=== PATIENT | female | born 1950 | race Caucasian/White ===

== ENCOUNTER 2018-03-28 02:40 | Emergency (ER) | payer OTHER, BC ==
[2018-03-28] MEDS ORDERED: HYDROCODONE/APAP 7.5/325 MG TAB ONE (02:53)
--- NOTE | 2018-03-28 05:12 | ER ---
Nurse's Notes [facility] Name: Cassie Christensen Age: 67 yrs Sex: Female : 1950 Arrival Date: 03/28/2018 Time: 02:42 Bed 4 Private MD: Diagnosis: Fracture left humeral head. Fracture left patella Presentation: 03/28 02:43 Presenting complaint: Patient states: she was sitting on the toilet and believes she aa1 nodded off and fell off of the toilet hitting the shower with the L side of her body. C/O L shoulder pain and L knee pain. CMS intact. Transition of care: patient was not received from another setting of care. Onset of symptoms was March 28, 2018. Initial Sepsis Screen: Does the patient meet any 2 criteria? No. Patient's initial sepsis screen is negative. Does the patient have a suspected source of infection? No. Patient's initial sepsis screen is negative. Care prior to arrival: None. 02:43 Method Of Arrival: EMS: [facility] aa1 02:43 Acuity: JELLY 3 aa1 Triage Assessment: 02:45 General: Appears in no apparent distress. uncomfortable, Behavior is calm, cooperative, aa1 appropriate for age. Historical: - Allergies: 02:45 No Known Allergies; aa1 - Home Meds: 02:45 None [Active]; aa1 - PMHx: 02:45 None; aa1 - PSHx: 02:45 None; aa1 - Immunization history:: Flu vaccine is not up to date. - Social history:: Smoking status: Patient/guardian denies using tobacco. Screenin:49 Abuse screen: Denies threats or abuse. Nutritional screening: No deficits noted. bb Tuberculosis screening: No symptoms or risk factors identified. Fall Risk Fall in past 12 months (25 points). No secondary diagnosis (0 pts). No IV (0 pts). Ambulatory Aid- None/Bed Rest/Nurse Assist (0 pts). Mental Status- Oriented to own ability (0 pts). Total Mishra Fall Scale indicates Low Risk Score (25-44 pts). Fall prevention measures have been instituted. Side Rails Up X 2 Family Present and informed to notify staff if they need to leave bedside As available Patient and Family Educated on Fall Prevention Program and strategies. Assessment: 02:49 General: Appears in no apparent distress. uncomfortable, Behavior is cooperative, bb anxious. Pain: Complains of pain in left shoulder and left knee Pain currently is 01 out of 10 on a pain scale. Neuro: Level of Consciousness is awake, alert, obeys commands, Oriented to person, place, time, situation. Cardiovascular: Heart tones S1 S2 present. Respiratory: Airway is patent Respiratory effort is even, unlabored, Respiratory pattern is regular, Breath sounds are clear bilaterally. GI: Abdomen is non-distended, Bowel sounds present X 4 quads. Abd is soft and non tender X 4 quads. Derm: Skin is pink, warm \T\ dry. Musculoskeletal: Circulation, motion, and sensation intact. Reports pain in left shoulder and left knee bruising to left knee. 03:38 Reassessment: No changes from previously documented assessment. Patient and/or family bb updated on plan of care and expected duration. Pain level reassessed. Patient is alert, oriented x 3, equal unlabored respirations, skin warm/dry/pink. family at bedside Patient states feeling better. 03:39 Reassessment: pt to CT scan via stretcher with generator technician. bb 04:38 Reassessment: Patient and/or family updated on plan of care and expected duration. Pain bb level reassessed. Patient is alert, oriented x 3, equal unlabored respirations, skin warm/dry/pink. pt resting quietly, family at bedside, awaiting results of CT scan. Vital Signs: 02:45 BP 155 / 81; Pulse 99; Resp 20; Temp 98.3; Pulse Ox 100% on R/A; Weight 69.4 kg; Height aa1 5 ft. 8 in. (172.72 cm); Pain 5/10; 03:47 BP 143 / 95; Pulse 83; Resp 18 S; Pulse Ox 98% on R/A; bb 04:40 BP 136 / 73; Pulse 83; Resp 18 S; Pulse Ox 97% on R/A; bb 05:30 BP 130 / 70; Pulse 81; Resp 16; Temp 98.3; Pulse Ox 98% on R/A; Pain 3/10; ak1 02:45 Body Mass Index 23.26 (69.40 kg, 172.72 cm) aa1 ED Course: 02:42 Patient arrived in ED. aa1 02:44 Triage completed. aa1 02:45 Gaston Bailey MD is Attending Physician. pkl 02:45 Arm band placed on left wrist. Patient placed in an exam room, on a stretcher. aa1 02:48 Salma Mendosa, RN is Primary Nurse. bb 02:49 Patient has correct armband on for positive identification. Bed in low position. Call bb light in reach. Side rails up X2. Adult w/ patient. mainspring torque tester on. Pulse ox on. Sitter at bedside. Warm blanket given. 03:11 X-ray completed. Portable x-ray completed in exam room. Patient tolerated procedure kw well. 03:12 Shoulder Left (2 View) XRAY In Process Unspecified. EDMS 03:12 Knee Left 3 View XRAY In Process Unspecified. EDMS 03:28 Assisted with bedpan. ak1 03:55 CT completed. Patient tolerated procedure well. Patient moved to CT via stretcher. Patient moved back from CT. 03:56 Shoulder Left Wo Con In Process Unspecified. EDMS 04:31 Assisted with bedpan. ak1 05:11 Amador Scott MD is Referral Physician. pkl 05:29 No provider procedures requiring assistance completed. Patient did not have IV access ak1 during this emergency room visit. Administered Medications: 02:55 Drug: [place] (7.5 mg-325 mg) 1 tabs Route: PO; bb 05:29 Follow up: Response: No adverse reaction ak1 Outcome: 05:12 Discharge ordered by . pkl 05:30 Discharged to home via wheelchair, with family. ak1 05:30 Condition: stable 05:30 Discharge instructions given to patient, family, Instructed on discharge instructions, follow up and referral plans. no drinking with medication, no driving heavy equipment, medication usage, splint and shoulder immobilizer use/care Demonstrated understanding of instructions, follow-up care, medications, splint care, Prescriptions given X 1. 05:31 Patient left the ED. ak1 Signatures: Dispatcher [employer] Tenisha Yang, RN RN aa1 Gaston Bailey MD MD pkl Kd Viera Salma Mendosa, RN RN Vanessa Tucker Amber, RN RN ak1
--- NOTE | 2018-03-28 05:12 | EDPHYS ---
Physician Documentation [facility] Name: Cassie Christensen Age: 67 yrs Sex: Female : 1950 Arrival Date: 03/28/2018 Time: 02:42 Bed 4 Private MD: ED Physician Gaston Bailey HPI: 03/28 03:32 This 67 yrs old Female presents to ER via EMS with complaints of Fall Injury. pkl 03:32 Details of fall: The patient fell from seated position, sitting on the toilet. Onset: pkl The symptoms/episode began/occurred just prior to arrival, 1 hour(s) ago. Associated injuries: The patient sustained left shoulder, left knee. Historical: - Allergies: 02:45 No Known Allergies; aa1 - Home Meds: 02:45 None [Active]; aa1 - PMHx: 02:45 None; aa1 - PSHx: 02:45 None; aa1 - Immunization history:: Flu vaccine is not up to date. - Social history:: Smoking status: Patient/guardian denies using tobacco. ROS: 03:32 Eyes: Negative for injury, pain, redness, and discharge, ENT: Negative for injury, pkl pain, and discharge, Neck: Negative for injury, pain, and swelling, Cardiovascular: Negative for chest pain, palpitations, and edema, Respiratory: Negative for shortness of breath, cough, wheezing, and pleuritic chest pain, Abdomen/GI: Negative for abdominal pain, nausea, vomiting, diarrhea, and constipation, Back: Negative for injury and pain, : Negative for injury, bleeding, discharge, and swelling, Skin: Negative for injury, rash, and discoloration, Neuro: Negative for headache, weakness, numbness, tingling, and seizure. 03:32 MS/extremity: Positive for injury or acute deformity, of the left shoulder and left knee. Exam: 03:32 Head/Face: Normocephalic, atraumatic. Eyes: Pupils equal round and reactive to light, pkl extra-ocular motions intact. Lids and lashes normal. Conjunctiva and sclera are non-icteric and not injected. Cornea within normal limits. Periorbital areas with no swelling, redness, or edema. ENT: Nares patent. No nasal discharge, no septal abnormalities noted. Tympanic membranes are normal and external auditory canals are clear. Oropharynx with no redness, swelling, or masses, exudates, or evidence of obstruction, uvula midline. Mucous membranes moist. Neck: Trachea midline, no thyromegaly or masses palpated, and no cervical lymphadenopathy. Supple, full range of motion without nuchal rigidity, or vertebral point tenderness. No Meningismus. Chest/axilla: Normal chest wall appearance and motion. Nontender with no deformity. No lesions are appreciated. Cardiovascular: Regular rate and rhythm with a normal S1 and S2. No gallops, murmurs, or rubs. Normal PMI, no JVD. No pulse deficits. Respiratory: Lungs have equal breath sounds bilaterally, clear to auscultation and percussion. No rales, rhonchi or wheezes noted. No increased work of breathing, no retractions or nasal flaring. Abdomen/GI: Soft, non-tender, with normal bowel sounds. No distension or tympany. No guarding or rebound. No evidence of tenderness throughout. Back: No spinal tenderness. No costovertebral tenderness. Full range of motion. Skin: Warm, dry with normal turgor. Normal color with no rashes, no lesions, and no evidence of cellulitis. Neuro: Awake and alert, GCS 15, oriented to person, place, time, and situation. Cranial nerves II-XII grossly intact. Motor strength 5/5 in all extremities. Sensory grossly intact. Cerebellar exam normal. Normal gait. 03:32 Musculoskeletal/extremity: Extremities: grossly normal except: noted in the left shoulder: contusion, pain, noted in the left knee: pain, swelling, tenderness. Vital Signs: 02:45 BP 155 / 81; Pulse 99; Resp 20; Temp 98.3; Pulse Ox 100% on R/A; Weight 69.4 kg; Height aa1 5 ft. 8 in. (172.72 cm); Pain 5/10; 03:47 BP 143 / 95; Pulse 83; Resp 18 S; Pulse Ox 98% on R/A; bb 04:40 BP 136 / 73; Pulse 83; Resp 18 S; Pulse Ox 97% on R/A; bb 05:30 BP 130 / 70; Pulse 81; Resp 16; Temp 98.3; Pulse Ox 98% on R/A; Pain 3/10; ak1 02:45 Body Mass Index 23.26 (69.40 kg, 172.72 cm) aa1 MDM: 02:45 Patient medically screened. pkl 05:10 Data reviewed: vital signs, nurses notes, radiologic studies, CT scan, plain films. pkl 03/28 02:51 Order name: Shoulder Left (2 View) XRAY pkl 03/28 02:51 Order name: Knee Left 3 View XRAY pkl 03/28 03:27 Order name: Shoulder Left Wo Con EDMS 03/28 05:09 Order name: Shoulder Immobilizer; Complete Time: 05:29 pkl 03/28 05:09 Order name: Knee Immobilizer; Complete Time: 05:29 pkl Administered Medications: 02:55 Drug: [place] (7.5 mg-325 mg) 1 tabs Route: PO; bb 05:29 Follow up: Response: No adverse reaction ak1 Disposition: 03/28/18 05:12 Discharged to Home. Impression: Fracture left humeral head. Fracture left patella. - Condition is Stable. - Prescriptions for Ultram 50 mg Oral Tablet - take 1 tablet by ORAL route every 8 hours As needed; 30 tablet. - Medication Reconciliation Form, Thank You Letter, Antibiotic Education, Prescription Opioid Use form. - Follow up: Amador Scott MD; When: 2 - 3 days; Reason: Re-evaluation by your physician. - Problem is new. - Symptoms have improved. Signatures: Dispatcher [employer] Tenisha Yang, RN RN aa1 Gaston Bailey MD MD pkl Salma Mendosa RN RN bb Kiki Perez RN RN ak1
--- NOTE | 2018-03-28 08:45 | RAD REPORT ---
EXAM DESCRIPTION: RAD - Knee Left 3 View - 03/28/2018 3:14 am CLINICAL HISTORY: Fall, knee pain COMPARISON: None. FINDINGS: Transverse fracture of the patella is present approximately 6- 7 mm of distraction along t he fracture plane.Small joint effusion is present. Fracture extends into the articular surface of the patella. Soft tissue swelling is also present superficial to the joint space. Femur, tibia and fibula show no acute findings. No foreign body. IMPRESSION: Transverse fracture of the patella with 6- 7 mm of distraction.
--- NOTE | 2018-03-28 08:46 | RAD REPORT ---
EXAM DESCRIPTION: RAD - Shoulder Left 2 View - 03/28/2018 3:16 am CLINICAL HISTORY: Fall, shoulder pain COMPARISON: None. TECHNIQUE: Internal and external rotation views of the left shoulder were obtained. FINDINGS: No gross fracture deformity is seen. There are subtle changes along the medial margin surg ical neck that could indicate fracture. No pathologic bone process. No AC joint degenerative spurring or hypertrophy. Acromial humeral joint space is normal. No acute finding in the ribs or parenchyma o f the upper chest. IMPRESSION: Questionable fracture of the proximal humerus.
--- NOTE | 2018-03-28 08:52 | RAD REPORT ---
EXAM DESCRIPTION: CT - Shoulder Left Wo Con - 03/28/2018 5:18 am CLINICAL HISTORY: Fall, shoulder pain A preliminary written report was provided at the time of the study, and the report was reviewed prio r to final dictation. COMPARISON: Left shoulder same date TECHNIQUE: Axial 3 millimeter thick images of the left shoulder joint obtained with sagittal and cor onal reformatted images generated and reviewed. FINDINGS: No fracture of the acromion or elsewhere within the scapula. Minimal AC joint degenerative changes present without inferiorly directed spurring. Minimal degenerative change at the sternoclavi cular joint. No clavicle fracture seen. No dislocation of the humeral head and no pathologic bone process seen. Fracture of the proximal obed jeremiah is present. Fracture is seen as a primarily transverse fracture plane along the surgical neck. Fr acture involves the lesser tuberosity as well as the biceps groove. There is minimal impaction along the medial margin of the fracture. Several small fracture fragments are seen along the anterior crow n of the fracture. IMPRESSION: Minimally impacted fracture of the proximal humerus seen as a primarily surgical neck tr ansverse fracture. Greater tuberosity and biceps groove are involved. No dislocation of the humeral head. No pathologic component.
== END 2018-03-28 05:31 | disposition home or self-care (01) ==
LOC: ER 02:40
PROC: 2W3BXYZ Immobilization of Left Upper Arm using Other Device (ICD-10-PCS; principal; 2018-03-28)
PROC: 2W3RXYZ Immobilization of Left Lower Leg using Other Device (ICD-10-PCS; 2018-03-28)
DX: S42.292A Other displaced fracture of upper end of left humerus, initial encounter for closed fracture (principal); S82.002A Unspecified fracture of left patella, initial encounter for closed fracture; W18.11XA Fall from or off toilet without subsequent striking against object, initial encounter; Y93.9 Activity, unspecified; Y92.9 Unspecified place or not applicable
CPT/HCPCS: 73200; 99285

== ENCOUNTER 2019-06-11 08:02 | Observation (INO) | payer OTHER, BC ==
[2019-06-08 12:30] LABS: Absolute Lymphocytes (CBC) 0.9 K/uL (0.7-4.9); Basophils % 0.7 % (0-1.3); Eosinophils % 1.9 % (0-4.4); Hematocrit 39.2 % (36.0-45.0); Lymphocytes % 22.7 % (15.3-44.8); Monocytes % 10.2 % (3.3-12.3); RBC Red Blood Cell Count 4.39 M/uL (3.86-4.86)
--- NOTE | 2019-06-08 12:53 | RAD REPORT ---
EXAM DESCRIPTION: RAD - Chest Pa And Lat (2 Views) - 06/08/2019 12:47 pm CLINICAL HISTORY: pre op Chest pain. COMPARISON: No comparisons FINDINGS: The lungs are clear. The heart is mildly enlarged in size. No displaced fractures.
[2019-06-08 12:58] LABS: Potassium 4.5 mmol/L (3.5-5.1)
--- NOTE | 2019-06-08 15:01 | EKG ---
Test Date: 2019-06-08 Test Time: 12:14:56 Scientific Investigator: PORSHA MEASUREMENT RESULTS: Intervals: Rate: 71 IA: 156 QRSD: 86 QT: 368 QTc: 399 [place]: P: 75 IA: 156 QRS: 43 T: 71 INTERPRETIVE STATEMENTS: Normal sinus rhythm Normal ECG No previous ECG available for comparison Electronically Signed On 06-08-19 15:00:28 CDT by Newton Carrera
--- OUTSIDE RECORDS SUMMARY | 2019-06-11 08:15 | XMS REPORT ---
:1950 [facility] [address] Mendosa [address] [place] [id number] Care Team Providers Name Role Phone Unavailable Unavailable Unavailable Problems This patient has no known problems. Allergies, Adverse Reactions, Alerts This patient has no known allergies or adverse reactions. Medications This patient has no known medications.
[2019-06-11] MEDS ORDERED: Ringers Lactate 1,000 ML IV ONE (09:11)
[2019-06-11] MEDS ORDERED: PROPOFOL 200 MG/20 ML VIAL IV ONE (09:20)
[2019-06-11] MEDS ORDERED: FENTANYL CITR 100 MCG/2 ML ONE (09:21)
[2019-06-11] MEDS ORDERED: LIDOCAINE 2% MPF 5 ML VIAL ONE (09:23)
[2019-06-11] MEDS ORDERED: MIDAZOLAM HCL 2 MG/2 ML INJ ONE (09:23)
[2019-06-11] MEDS ORDERED: ONDANSETRON 4 MG/2 ML VIAL ONE (09:24)
[2019-06-11] MEDS ORDERED: ROCURONIUM 50 MG/5 ML VIAL IV ONE (09:25)
[2019-06-11] MEDS ORDERED: CEFAZOLIN/SWI 1gm 1 GM/10 ML SYR ONE (09:35)
[2019-06-11] MEDS ORDERED: dexAMETHasone 4 MG/ML VIAL ONE (10:15)
--- NOTE | 2019-06-11 11:09 | P.BOP ---
Preoperative diagnosis: right breast invasive ductal carcinoma Postoperative diagnosis: same Primary procedure: Right modified radical mastectomy Hot Dog Vendor: MONIQUE HERRERA (SENIOR MARKETING ENGINEER) Estimated blood loss: <50cc Specimen: breast and axillary dissection Findings: as above, enlarged axillary LN Anesthesia: General Complications: None Drain(s): ARABELLA drain (2) Transferred to: Recovery Room Condition: Good
[2019-06-11] MEDS ORDERED: MORPHINE 2 MG/ML SYR IV PRN (11:11)
[2019-06-11] MEDS ORDERED: HYDROCODONE/APAP 5/325 MG TAB PO PRN (11:11)
[2019-06-11] MEDS ORDERED: ONDANSETRON 4 MG/2 ML VIAL IV PRN (11:11)
[2019-06-11] MEDS ORDERED: GLYCOPYRROLATE 0.2 MG/ML SYR ONE ×2 (11:59)
[2019-06-11] MEDS ORDERED: NEOSTIGMINE 1 MG/ML -10 ML VIAL ONE (12:00)
[2019-06-11] MEDS: HYDROMORPHONE HCL 1 MG/ML INJ ONE ×2 (12:12→12:26)
[2019-06-11] MEDS ORDERED: PROMETHAZINE 25 MG/ML VIAL ONE (12:34)
[2019-06-11 13:35] VITALS: BMI 24.0
[2019-06-11] MEDS: NA CHLORIDE 0.9% 1,000 ML IV SCH ×2 (14:00→21:53)
[2019-06-11] MEDS: CEFOXITIN/SWI 1gm 1 GM/10 ML SYR IV SCH ×2 (14:00→18:20)
--- NOTE | 2019-06-11 14:02 | OP ---
Surgeon: Olman Morse MD Production Material Coordinator: ELSY Reddy. Peroperative Diagnosis: Right breast invasive ductal carcinoma with lymphadenopathy. Postoperative Diagnosis: Right breast invasive ductal carcinoma with lymphadenopathy. Procedures: Right modified radical mastectomy. Specimens: Breasts and axillary dissection. Anesthesia: General plus local. Findings: As above. The patient as described in the previous imaging, enlarged axillary lymph node on the same side. Drain: A ARABELLA #10 x2. Indications: This is the case of a 68-year-old patient, comes to our office with a large right breas t with induration and found to have invasive ductal carcinoma with lymphadenopathy. The patient want s the breast removed. We discussed the different options that she may have. Core biopsy shows invas bernadette ductal carcinoma. She wants a modified radical mastectomy, after discussing with her breast cons ervative treatment versus a right modified radical mastectomy. She is very sure what she wants. She wants me this done before any other treatment. So, we will schedule her for right modified radical mastectomy, with benefits, alternative risks including, but not limited to infection, bleeding, damag e to adjacent structures, anesthesia complication, lymphedema, chronic nerve pain, chronic numbness, failure of the graft, seroma recurrence, NH, even , but also understood this might not relieve t he symptoms. She might need more than one surgical intervention. She also understands she has to fo llow up with her oncologist in the future to see the possibility of chemotherapy or even in some occa sions radiation therapy. She understood, signed a consent. The area of concern was marked by me and the patient in the holding room. Description Of Procedure: The patient was brought to the operating room, placed in supine position. Anesthesia was done without complication. On the right chest, clavicle, neck and arm were prepped a nd draped in a sterile fashion. A time-out was called. A skin incision was made to cover the nipple -areolar complex and also the previous biopsy site. This was done in an oblique direction. The flap s were raised in the avascular plane between the subcutaneous tissue and the breast tissue, superiorl y up to the clavicle, medial up to the sternum, inferiorly to the anterior rectus sheath and laterall y to the anterior border of latissimus dorsi. After that, the breast tissue and the underlying pecto ralis fascia were excised from the pectoralis major muscle from medial to lateral, the lateral border of the pectoralis muscle, we made sure that breast tissue was just swung laterally and the dissectio n continued underneath the muscle. The clavipectoral fascia was then carefully incised at the edge o f the pectoralis major and minor. This major minor muscle were freed up from the surrounding fat and michelle tissue. The dissection was progressed underneath the pectoralis major and minor muscles. The muscles were retracted laterally. The medial pectoral neurovascular bundle was identified and prese rved. The level 2 michelle tissue also came with the specimen. The axillary vein was identified and pr otected. The first branch of the axillary veins was carefully ligated. The thoracodorsal nerve was identified and preserved. The long thoracic nerve was also identified and preserved. Michelle tissue c enmanuel with the specimen and marked for orientation. The area was irrigated. Hemostasis was obtained. After that, I placed 2 ARABELLA drains, one in the axillary region, another one in the region a nd secured in place with a nylon. The subcutaneous tissue was closed with 2-0 chromic and then the s kin with 4-0 PDS. This is after irrigation and suction and hemostasis. In the beginning we used ___ local anesthetic. The patient tolerated the procedure well. Flap looks intact. Good color. ARABELLA drain with no bleeding. Arm with no swelling. Sterile dressing was placed over the area. The patient tolerated the procedure well. The patient was sent to Recovery in stable condition. The pat ient preferred to stay overnight for pain control. Right now in that area too and she is waking up with some pain so we going to keep for pain control and observation overnight. GEM/CHAVO Voice ID: [id number] Report ID: [id number]
[2019-06-11] MEDS ORDERED: PNEUMOCOCCAL VACCINE 0.5 ML IMVAC ONE (15:00)
[2019-06-12] MEDS: CEFOXITIN/SWI 1gm 1 GM/10 ML SYR IV SCH (00:12)
[2019-06-12 06:19] LABS: Potassium 4.6 mmol/L (3.5-5.1)
[2019-06-12 06:20] LABS: Absolute Lymphocytes (CBC) 1.2 K/uL (0.7-4.9); Basophils % 0.3 % (0-1.3); Eosinophils % 0.5 % (0-4.4); Hematocrit 34.9 % (36.0-45.0); Lymphocytes % 21.7 % (15.3-44.8); MPV 8.3 fL (7.6-11.3); Monocytes % 11.2 % (3.3-12.3); RBC Red Blood Cell Count 3.92 M/uL (3.86-4.86)
[2019-06-12] MEDS: NA CHLORIDE 0.9% 1,000 ML IV SCH (08:31)
[2019-06-12] MEDS ORDERED: ENOXAPARIN 40 MG/0.4 ML SQ SCH (09:00)
[2019-06-12 09:35] VITALS: O2SAT 96
--- NOTE | 2019-06-12 13:36 | P.DS ---
Admission Date: 06/11/19 Discharge Date: 06/12/19 Disposition: ROUTINE DISCHARGE Discharge Condition: GOOD Vital Signs/Physical Exam: Temp Pulse Resp BP Pulse Ox 98.7 F 86 20 155/87 H 96 06/12/19 12:00 06/12/19 12:00 06/12/19 12:00 06/12/19 12:00 06/12/19 12:00 General: Alert, In no apparent distress, Oriented x3, Cooperative HEENT: PERRLA, EOMI, Sclerae nonicteric Neck: Supple Respiratory: Normal air movement Cardiovascular: No edema, Normal pulses Gastrointestinal: Soft and benign Musculoskeletal: No erythema, No tenderness, No warmth Integumentary: No erythema, No warmth, No cyanosis Neurological: Normal speech Laboratory Data at Discharge: WBC 5.5 K/uL (4.3-10.9) D 06/12/19 05:14 Hgb 11.8 g/dL (12.0-15.0) L 06/12/19 05:14 Hct 34.9 % (36.0-45.0) L 06/12/19 05:14 Plt Count 171 K/uL (152-406) 06/12/19 05:14 Sodium 142 mmol/L (136-145) 06/12/19 05:14 Potassium 4.6 mmol/L (3.5-5.1) 06/12/19 05:14 BUN 16 mg/dL (7-18) 06/12/19 05:14 Creatinine 0.94 mg/dL (0.55-1.3) 06/12/19 05:14 Glucose 105 mg/dL (74-106) 06/12/19 05:14 Home Medications: Calcium Carbonate/Vitamin D3 [Calcium 500 mg Chewable Tablet] 2 tab PO DAILY 11/15 Ciprofloxacin HCl [Cipro 500 MG Tablet] 500 mg PO BID #10 tab 06/12/19 Codeine/APAP [Tylenol W/Codeine #3 tab] 1 tab PO Q4HP PRN #30 tab 06/12/19 New Medications: Ciprofloxacin HCl [Cipro 500 MG Tablet] 500 mg PO BID #10 tab Codeine/APAP [Tylenol W/Codeine #3 tab] 1 tab PO Q4HP PRN #30 tab PRN Reason: Pain Patient Discharge Instructions: Keep dressing intact. Record ARABELLA output q24h Diet: AHA Activity: No lifting more than 10 lbs Followup: Olman Morse MD [ACTIVE - CAN ADMIT] - 06/15/19
[2019-06-12 16:54] VITALS: BP 169/80; TEMP 99.4
== END 2019-06-12 16:50 | disposition home or self-care (01) ==
LOC: OR 08:02 → 4TH 11:16 → OR 11:16 → 4TH 11:16
PROVIDERS: ADMIT Surgery; ATTEND Surgery
PROC: 07T50ZZ Resection of Right Axillary Lymphatic, Open Approach (ICD-10-PCS; 2019-06-11)
PROC: 0HTT0ZZ Resection of Right Breast, Open Approach (ICD-10-PCS; principal; 2019-06-11 09:45)
DX: C50.911 Malignant neoplasm of unspecified site of right female breast (principal); C77.3 Secondary and unspecified malignant neoplasm of axilla and upper limb lymph nodes; Z17.0 Estrogen receptor positive status [ER+]
CPT/HCPCS: 19307; 93005; 85025 ×2; 80048 ×2; 36415 ×2; 88309; 71046; 97163; G0379; J2704; J2710; J2550; J1650; J2250; J3010; J1170; J0690; J7030 ×3; J2405; G0378; 88305

== ENCOUNTER 2019-07-12 06:25 | Day surgery (SDC) | payer OTHER, BC ==
[2019-07-11 16:03] LABS: Absolute Lymphocytes (CBC) 0.8 K/uL (0.7-4.9); Basophils % 0.7 % (0-1.3); Hematocrit 39.6 % (36.0-45.0); Lymphocytes % 18.9 % (15.3-44.8); MPV 7.8 fL (7.6-11.3); RBC Red Blood Cell Count 4.49 M/uL (3.86-4.86)
[2019-07-11 16:15] LABS: Potassium 4.1 mmol/L (3.5-5.1)
--- OUTSIDE RECORDS SUMMARY | 2019-07-12 06:27 | XMS REPORT ---
:1950 [facility] [address] [place] [address] Dr. Mendosa [address] [place] [id number] Care Team Providers Name Role Phone Unavailable Unavailable Unavailable Problems This patient has no known problems. Allergies, Adverse Reactions, Alerts This patient has no known allergies or adverse reactions. Medications This patient has no known medications.
--- OUTSIDE RECORDS SUMMARY | 2019-07-12 06:27 | XMS REPORT | Summary of Care ---
:1950 Author Organization [facility] Address [address] [place] [address] Care Team Providers Name Role Phone Unavailable Primary Care Provider Unavailable Encounter Details Date Type Department Care Team Description 06/27/2019 Orders Only [facility] Doctor Unassigned, No [address] [facility] [place] [address] [address] [place] [address] Allergies Active Allergy Reactions Severity Noted Date Comments Sulfa (Sulfonamide Antibiotics) Other - See comments 04/12/2018 documented as of this encounter (statuses as of 07/04/2019) Medications No known medicationsdocumented as of this encounter (statuses as of 07/04/2019) Active Problems Not on filedocumented as of this encounter (statuses as of 07/04/2019) Social History Tobacco Use Types Packs/Day Years Used Date Never Smoker Smokeless Tobacco: Never Used Sex Assigned at Date Recorded Not on file Job Start Date Occupation Industry Not on file Not on file Not on file Travel History Travel Start Travel End No recent travel history available. documented as of this encounter Last Filed Vital Signs Not on filedocumented in this encounter Plan of Treatment Health Maintenance Due Date Last Done Comments HEPATITIS C (HCV) SCREEN 1950 DTaP,Tdap,and Td Vaccines (1 - Tdap) 1968 COLONOSCOPY 1999 Zoster Recombinant Vaccine (SHINGRIX) (1 of 2) 1999 Medicare Wellness Visit 2014 Osteoporosis Screening 2014 PNEUMOCOCCAL VACCINES 65+ (1 of 2 - PCV13) 2014 INFLUENZA VACCINE 07/29/2019 MAMMOGRAM 05/22/2020 05/22/2019 documented as of this encounter Procedures Procedure Name Priority Date/Time Associated Diagnosis Comments AUTHORIZATION FOR RELEASE Routine 06/27/2019 12:01 AM OF PHI CDT documented in this encounter Results Not on filedocumented in this encounter Insurance Payer Benefit Plan / Subscriber ID Effective Phone Address Type Group Dates MEDICARE MEDICARE PART A xxxxxxxxxxx 2014-Pres [phone] [address] Medicare & B ent [id number] [place] [phone] BCBS OF BCBS [id number] 2014-Pres [phone] [address] Medicare [place] [employer] ent [id number] [place] [address] documented as of this encounter
[2019-07-12] MEDS ORDERED: Ringers Lactate 1,000 ML IV ONE (06:47)
[2019-07-12] MEDS ORDERED: CEFAZOLIN/SWI 1gm 1 GM/10 ML SYR ONE (06:47)
[2019-07-12] MEDS ORDERED: NS 0.9% VIAL 20 ML ONE (07:14)
[2019-07-12] MEDS ORDERED: PROPOFOL 200 MG/20 ML VIAL IV ONE (07:17)
[2019-07-12] MEDS ORDERED: MIDAZOLAM HCL 2 MG/2 ML INJ ONE (07:18)
[2019-07-12] MEDS ORDERED: FENTANYL CITR 100 MCG/2 ML ONE (07:18)
[2019-07-12] MEDS ORDERED: LIDOCAINE 1% MPF 5 ML VIAL ONE (07:18)
[2019-07-12] MEDS: LIDOCAINE 1% 20 ML MDV ONE ×2 (08:00→08:05)
[2019-07-12] MEDS ORDERED: ONDANSETRON 4 MG/2 ML VIAL ONE (08:03)
[2019-07-12] MEDS: HEPARIN 5000 UNIT/ML 1 ML VIAL ONE ×2 (08:04→08:18)
[2019-07-12] MEDS: LABETALOL HCL 100 MG/20 ML ONE ×5 (08:46→09:26)
--- NOTE | 2019-07-12 09:19 | RAD REPORT ---
EXAM DESCRIPTION: RAD - Chest Single View - 07/12/2019 9:04 am CLINICAL HISTORY: Port-A-Cath placement, postprocedure chest film COMPARISON: June 08 TECHNIQUE: AP portable chest image was obtained [id number] hours . FINDINGS: Lung volumes are low compared to the prior study. No pulmonary edema, infiltrate or pneumo thorax. No measurable pleural fluid collection. Heart size is magnified by portable technique and sha llow inspiration. Numerous surgical clips are present in the right axilla axillary tail region with drain tube in place . Right mastectomy changes are evident. Left-sided Port-A-Cath has been placed. The proximal jugular access site falls outside of the field o f view. Tip of the Port-A-Cath is at the brachiocephalic SVC junction. Findings discussed with the referring physician 0911 hours IMPRESSION: Left-sided Port-A-Cath placement as detailed. Tip is at the brachiocephalic SVC junction . No pneumothorax or other significant finding.
[2019-07-12] MEDS ORDERED: HYDROMORPHONE HCL 1 MG/ML INJ ONE (09:21)
--- NOTE | 2019-07-12 10:23 | RAD REPORT ---
EXAM DESCRIPTION: RAD - Fluoroscopy <1 Hour - 07/12/2019 9:58 am FINDINGS: There were 11 fluoroscopic spot images obtained during fluoroscopic assisted placement of a left-sided Port-A-Cath. No suspicious or unexpected finding. Fluoro time was 2.1 minutes.
[2019-07-12 11:05] VITALS: BP 170/90; TEMP 97.8; O2SAT 99
--- NOTE | 2019-07-12 22:53 | OP ---
Date of Procedure: 07/12/2019 Surgeon: Vasiliy Prakash MD Preoperative Diagnosis: Right breast cancer. Postoperative Diagnosis: Right breast cancer. Procedure: Left IJ Port-A-Cath placement and interpretation of fluoroscopy. Estimated Blood Loss: Minimal. Specimen: None. Findings: Normal anatomy. Anesthesia: General. Complications: None. Disposition: Patient tolerated the procedure in stable condition and taken to recovery in good gener al condition. Procedure In Detail: The patient was brought to the OR and placed in supine position. General anest hesia was begun. Patient was prepped and draped in usual sterile fashion. Lidocaine 1% infiltrated locally. An 18-gauge needle was used to access the left IJ vein, guidewire passed. Position confirm ed with fluoroscopy. Counter incision 3 cm made on left anterior chest pocket created. Subcutaneous tissues divided. Bleeding controlled with cautery. Tunneling device was used to tunnel the cathete r between the 2 wounds. Seldinger technique was used. Tip of the catheter was placed in the SVC. H owever, it was very difficult to manipulate it past that point because apparently of some minor anato boogie problems, tried manipulating with the guidewire, was very difficult, therefore the patient had go od function however, with good flow at the brachiocephalic SVC junction. It was opted to just leave the tip of the catheter there. Subsequently, catheter was cut to appropriate size and attached to th e Port-A-Cath device. Port-A-Cath device was attached to subcutaneous tissue with 3-0 Vicryl and the n wound was closed with 3-0 chromic in the standard fashion and then catheter was flushed with hepari n and packed with heparin with good blood flow. Sterile dressing was applied. The patient was awake adamaris and taken to Recovery in good general condition. Chest x-ray has been ordered for which patient if stable will be discharged to home. Disposition: Home. Condition: Stable. Discharge Instructions: Resume home medications and diet. Activity as tolerated. No heavy lifting. Remove outer dressing in 2 days. Shower. Keep wound clean and dry. Keep Steri-Strips on at all t imes. Follow up in my office in 2 weeks, call for appointment. Tylenol No 3 one tablet 3-4 p.r.n. p ain. Follow up with Dr. Grullon's office next week. /MODL Voice ID: [id number] Report ID: [id number]
== END 2019-07-12 11:03 | disposition home or self-care (01) ==
LOC: OR 06:25
PROVIDERS: ATTEND Surgery
PROC: 0JH60WZ Insertion of Totally Implantable Vascular Access Device into Chest Subcutaneous Tissue and Fascia, Open Approach (ICD-10-PCS; principal; 2019-07-12 07:30)
DX: C50.911 Malignant neoplasm of unspecified site of right female breast (principal); Z88.2 Allergy status to sulfonamides; Z80.9 Family history of malignant neoplasm, unspecified; Z82.49 Family history of ischemic heart disease and other diseases of the circulatory system
CPT/HCPCS: 85025; 80048; 36415; 71045; 36561; J2704; J1644 ×2; J2250; J3010; J1170; J0690; J2405; C1788; 76000

== ENCOUNTER 2025-04-18 16:24 | Emergency (ER) | payer OTHER, BC ==
--- NOTE | 2025-04-18 17:04 | ER ---
Nurse's Notes [facility] Name: Cassie Christensen Age: 74 yrs Sex: Female : 1950 Arrival Date: 04/18/2025 Time: 16:24 Bed [id number] Private MD: Diagnosis: Acute embolism and thrombosis of unspecified deep veins of left lower extremity-left popliteal Presentation: 04/18 16:54 Chief complaint: Patient states: Had outpatient US and was told to go to ER for DVT L ll1 leg. Coronavirus screen: Client denies travel out of the [place] in the last 14 days. At this time, the client does not indicate any symptoms associated with coronavirus-19. Ebola Screen: Patient denies travel to an Ebola-affected area in the 21 days before illness onset. Initial Sepsis Screen: Does the patient meet any 2 criteria? No. Patient's initial sepsis screen is negative. Does the patient have a suspected source of infection? No. Patient's initial sepsis screen is negative. Risk Assessment: Do you want to hurt yourself or someone else? Patient reports no desire to harm self or others. Onset of symptoms was April 18, 2025. 16:54 Method Of Arrival: Wheelchair ll1 16:54 Acuity: JELLY 3 ll1 Triage Assessment: 16:55 General: Appears in no apparent distress. Behavior is calm, cooperative, appropriate ll1 for age. Pain: Denies pain. Musculoskeletal: Circulation, motion, and sensation intact. Capillary refill < 3 seconds, in left toes. Reports blood clot LLE. Historical: - Allergies: 16:55 Sulfa (Sulfonamide Antibiotics); ll1 - PMHx: 16:55 breast CA mets bone; Hypertensive disorder; Hypercholesterolemia; ll1 - PSHx: 16:55 mastectomy; knee surgery; ll1 - Immunization history:: Adult Immunizations up to date. - Infectious Disease History:: Denies. - Social history:: Smoking status: Patient denies any tobacco usage or history of. Screenin:15 [facility] ED Fall Risk Assessment (Adult) History of falling in the last 3 months, ll1 including since admission No falls in past 3 months (0 pts) Confusion or Disorientation No (0 pts) Intoxicated or Sedated No (0 pts) Impaired Gait Yes (1 pt) Mobility Assist Device Used Yes (1 pt) Altered Elimination No (0 pt) Score/Fall Risk Level 0 - 2 = Low Risk Maintained a safe environment, Hourly rounding (assess needs \T\ fall precautionary measures) done. Abuse screen: Denies threats or abuse. Nutritional screening: No deficits noted. Tuberculosis screening: No symptoms or risk factors identified. Assessment: 17:15 Reassessment: No changes from previously documented assessment. Patient and/or family ll1 updated on plan of care and expected duration. Pain level reassessed. Vital Signs: 16:54 BP 174 / 85; Pulse 84; Resp 17; Temp 97.7; Pulse Ox 98% ; Weight 78.47 kg; Height 5 ft. ll1 4 in. ; Pain 0/10; 16:54 Body Mass Index 29.70 (78.47 kg, 162.56 cm) ll1 16:54 Pain Scale: Adult ll1 ED Course: 16:28 Patient arrived in ED. mr 16:51 Cammie Branch PA-C [facility]. sb4 16:51 Fortino Valerio MD is Attending Physician. sb4 16:55 Triage completed. ll1 16:55 Patient has correct armband on for positive identification. Provided Education on: ER ll1 procedures and process. 16:56 Arm band placed on. ll1 17:04 Olman Morse MD is Referral Physician. sb4 17:15 No provider procedures requiring assistance completed. Patient did not have IV access ll1 during this emergency room visit. Administered Medications: No medications were administered Medication: 17:56 VIS not applicable for this client. ll1 Outcome: 17:04 Discharge ordered by . sb4 17:15 Patient left the ED. ll1 17:15 Discharged to home via wheelchair, ll1 17:15 Condition: stable 17:15 Discharge instructions given to patient, Instructed on discharge instructions, follow up and referral plans. medication usage, Demonstrated understanding of instructions, follow-up care, medications, Prescriptions given X 1, Signatures: Yudelka Encarnacion, Reg Reg mr Aneta Rodriguez RN RN ll1 Cammie Branch PA-C PA-C sb4
--- NOTE | 2025-04-18 17:04 | EDPHYS ---
Physician Documentation [facility] Name: Cassie Christensen Age: 74 yrs Sex: Female : 1950 Arrival Date: 04/18/2025 Time: 16:24 Bed [id number] Private MD: ED Physician Fortino Valerio HPI: 04/18 17:19 This 74 yrs old Female presents to ER via Wheelchair with complaints of DVT. sb4 17:[address] Morse for wound on left lateral ankle. Additionally, states that she has sb4 had intermittent swelling in her left leg and foot for the past couple of weeks. He sent her for an outpatient ultrasound today to rule out DVT. It was positive and she was sent to the ED for further evaluation. She denies any pain, redness. Denies any history of blood clots. Denies any chest pain or shortness of breath. Denies any prior blood thinner use or current blood thinner use. Does have a history of breast cancer with mets to the bones that is currently being monitored, last chemo 3 years ago. Historical: - Allergies: 16:55 Sulfa (Sulfonamide Antibiotics); ll1 - PMHx: 16:55 breast CA mets bone; Hypertensive disorder; Hypercholesterolemia; ll1 - PSHx: 16:55 mastectomy; knee surgery; ll1 - Immunization history:: Adult Immunizations up to date. - Infectious Disease History:: Denies. - Social history:: Smoking status: Patient denies any tobacco usage or history of. ROS: 17:19 Constitutional: Negative for fever, chills, and weight loss, sb4 17:19 MS/extremity: Positive for swelling, of the left leg, 17:19 All other systems are negative, Exam: 17:19 Constitutional: This is a well developed, well nourished patient who is awake, alert, sb4 and in no acute distress. Head/Face: Normocephalic, atraumatic. Eyes: Extra-ocular motions intact. Periorbital areas with no swelling, redness, or edema. ENT: Mucous membranes moist. Respiratory: No increased work of breathing, no retractions or nasal flaring. 17:19 Musculoskeletal/extremity: DVT Exam: no pain, no swelling, no tenderness, negative Homans' sign noted on exam, no appreciated bluish discoloration, no erythema, no increased warmth, 17:19 Skin: Sabrina sized wound to the left lateral ankle, healing, no surrounding cellulitis. Vital Signs: 16:54 BP 174 / 85; Pulse 84; Resp 17; Temp 97.7; Pulse Ox 98% ; Weight 78.47 kg; Height 5 ft. ll1 4 in. ; Pain 0/10; 16:54 Body Mass Index 29.70 (78.47 kg, 162.56 cm) ll1 16:54 Pain Scale: Adult ll1 MDM: 16:51 Medical Screening Exam initiated sb4 17:19 Data reviewed: vital signs, nurses notes, and as a result, I will discharge patient. sb4 Test considered but Not performed: CT: Chest PE protocol not indicated. Suspicion is low for PE. External Records Reviewed: Outpatient radiology: Outpatient venous ultrasound of left lower extremity reveals thrombosis of left popliteal vein. Counseling: I had a detailed discussion with the patient and/or guardian regarding the historical points, exam findings, and any diagnostic results supporting the discharge/admit diagnosis, the presence of at least one elevated blood pressure reading (>120/80) during this emergency department visit, radiology results, the need for outpatient follow up, for definitive care, to return to the emergency department if symptoms worsen or persist or if there are any questions or concerns that arise at home. Administered Medications: No medications were administered Disposition: 22:18 Co-signature as Attending Physician, Fortino Valerio MD I agree with the assessment and opal plan of care. Disposition Summary: 04/18/25 17:04 Discharge Ordered Notes: Location: Home sb4 Problem: new sb4 Symptoms: are unchanged sb4 Condition: Stable sb4 Diagnosis - Acute embolism and thrombosis of unspecified deep veins of left lower extremity - sb4 left popliteal Followup: sb4 - With: Olman Morse MD - When: 1 week - Reason: Recheck today's complaints, Re-evaluation by your physician Discharge Instructions: - Discharge Summary Sheet sb4 - Deep Vein Thrombosis sb4 Forms: - Patient Portal Instructions sb4 - Leadership Thank You Letter sb4 Prescriptions: - Eliquis DVT-PE Treat 30D Start 5 mg (74 tabs) Oral Tablet, Dose Pack - take 5 milligram ORAL route per package directions; 1 Applicator; Refills: 0, sb4 Product Selection Permitted Signatures: Fortino Valerio MD MD cha Lewis, Lynsay, RN RN ll1 Cammie Branch, PA-C PA-C sb4
[2025-04-18 18:13] VITALS: BP 174/85; TEMP 97.7; O2SAT 98
== END 2025-04-18 17:15 | disposition home or self-care (01) ==
LOC: ER 16:24
DX: I82.432 Acute embolism and thrombosis of left popliteal vein (principal)
CPT/HCPCS: 99283